=== PATIENT | female | born 1955 | race Caucasian/White ===

== ENCOUNTER 2021-09-24 10:56 | Inpatient (IN) ==
[2021-09-24] MEDS ORDERED: Naloxone 0.4 MG/ML INJ IVP PRN (15:40)
[2021-09-24] MEDS ORDERED: Melatonin 3 MG TABLET PO PRN (15:40)
[2021-09-24] MEDS: Piperacillin/Tazobactam 3.375 GM in 0.9 % Sodium Chloride Mini Bag 100 ML IVPB SCH (18:28)
[2021-09-24] MEDS: Acetaminophen 325 MG TABLET PO PRN (21:28)
[2021-09-24] MEDS: Apixaban 5 MG TABLET PO SCH (21:29)
[2021-09-24] MEDS: Ipratropium 1 PUFF INHALER IH SCH (22:34)
[2021-09-24] MEDS: Vancomycin 1,500 MG/265 ML IV.SOLN IVPB SCH (23:27)
[2021-09-25 01:44] LABS: Basophils % 0.4 %; Eosinophils # 0.1 K/mcL (0.0-0.6); Eosinophils % 0.7 %; Hematocrit 39.4 % (35.3-44.9); Hemoglobin 11.6 g/dL (11.5-15.4); Immature Granulocytes % 1.3 % (0-4); Lymphocytes # 1.7 K/mcL (0.6-4.6); Lymphocytes % 17.7 %; Mean Corpuscular HGB Conc 29.4 g/dL (31.6-35.5); Mean Corpuscular Hemoglobin 26.9 pg (28.0-33.3); Mean Corpuscular Volume 91.2 fL (83.0-100.0); Mean Platelet Volume 10.1 fL (9.4-12.4); Monocytes # 0.5 K/mcL (0.0-1.3); Monocytes % 4.8 %; Neutrophils # 7.2 K/mcL (1.6-8.9); Platelet Count 393 K/mcL (140-400); Red Blood Count 4.32 M/mcL (3.82-4.97); Red Cell Distribution Width 15.7 % (11.5-14.5); Segmented Neutrophils % 75.1 %; White Blood Count 9.6 K/mcL (4.3-11.1)
[2021-09-25 02:04] LABS: BUN/Creatinine Ratio 16 (6-26); Blood Urea Nitrogen 12 mg/dL (8-23); Calcium 8.5 mg/dL (8.6-10.3); Carbon Dioxide 31 mEq/L (23-29); Chloride 101 mEq/L (98-107); Glucose 120 mg/dL (70-105); Magnesium 1.9 mg/dL (1.6-2.6); Osmolality,Calculated 283 (280-300); Potassium 3.9 mEq/L (3.5-5.1); Sodium 136 mEq/L (136-145); eGFR For African Americans > 60 (> 60); eGFR For Non-African Americans > 60 (> 60)
[2021-09-25] MEDS: Ipratropium 1 PUFF INHALER IH SCH ×6 (04:06→19:54)
[2021-09-25] MEDS: Piperacillin/Tazobactam 3.375 GM in 0.9 % Sodium Chloride Mini Bag 100 ML IVPB SCH ×3 (04:24→18:27)
[2021-09-25] MEDS: Apixaban 5 MG TABLET PO SCH ×2 (08:42→20:46)
[2021-09-25] MEDS: Aspirin Enteric Coated 81 MG Tablet PO SCH (08:43)
[2021-09-25] MEDS: Vancomycin 1,500 MG/265 ML IV.SOLN IVPB SCH ×2 (11:47→23:07)
[2021-09-25] MEDS ORDERED: Vancomycin 0 MG in 0.9 % Sodium Chloride 250 ML IVPB SCH (17:00)
[2021-09-25] MEDS ORDERED: Piperacillin/Tazobactam 3.375 GM in 0.9 % Sodium Chloride Mini Bag 100 ML IVPB SCH (19:00)
[2021-09-25] MEDS: Acetaminophen 325 MG TABLET PO PRN (20:45)
[2021-09-26] MEDS: Piperacillin/Tazobactam 3.375 GM in 0.9 % Sodium Chloride Mini Bag 100 ML IVPB SCH ×3 (02:18→17:58)
[2021-09-26] MEDS: Ipratropium 1 PUFF INHALER IH SCH ×4 (03:15→20:20)
[2021-09-26 05:51] LABS: Hematocrit 38.3 % (35.3-44.9); Hemoglobin 11.3 g/dL (11.5-15.4); Mean Corpuscular HGB Conc 29.5 g/dL (31.6-35.5); Mean Corpuscular Hemoglobin 27.4 pg (28.0-33.3); Mean Corpuscular Volume 92.7 fL (83.0-100.0); Mean Platelet Volume 10.4 fL (9.4-12.4); Platelet Count 375 K/mcL (140-400); Red Blood Count 4.13 M/mcL (3.82-4.97); Red Cell Distribution Width 15.9 % (11.5-14.5); White Blood Count 7.3 K/mcL (4.3-11.1)
[2021-09-26 06:08] LABS: BUN/Creatinine Ratio 11 (6-26); Blood Urea Nitrogen 7 mg/dL (8-23); Calcium 8.6 mg/dL (8.6-10.3); Carbon Dioxide 31 mEq/L (23-29); Chloride 102 mEq/L (98-107); Glucose 119 mg/dL (70-105); Osmolality,Calculated 285 (280-300); Potassium 3.8 mEq/L (3.5-5.1); Sodium 138 mEq/L (136-145); eGFR For African Americans > 60 (> 60); eGFR For Non-African Americans > 60 (> 60)
[2021-09-26] MEDS: Apixaban 5 MG TABLET PO SCH ×2 (09:36→19:50)
[2021-09-26] MEDS: Aspirin Enteric Coated 81 MG Tablet PO SCH (09:36)
[2021-09-26] MEDS: Vancomycin 1,500 MG/265 ML IV.SOLN IVPB SCH ×2 (10:30→22:36)
[2021-09-26] MEDS ORDERED: 0.9 % Sodium Chloride 500 ML IVC ONE (17:34)
[2021-09-27 01:39] LABS: Albumin 2.5 g/dL (3.5-5.7)
[2021-09-27] MEDS ORDERED: Albumin 25% 25gram/100mL 25 GM/100 ML IV.SOLN IVPB ONE ×2 (02:40→04:22)
[2021-09-27 02:57] LABS: BUN/Creatinine Ratio 11 (6-26); Blood Urea Nitrogen 7 mg/dL (8-23); Calcium 8.3 mg/dL (8.6-10.3); Carbon Dioxide 30 mEq/L (23-29); Chloride 103 mEq/L (98-107); Glucose 120 mg/dL (70-105); Osmolality,Calculated 287 (280-300); Potassium 3.8 mEq/L (3.5-5.1); Sodium 139 mEq/L (136-145); eGFR For African Americans > 60 (> 60); eGFR For Non-African Americans > 60 (> 60)
[2021-09-27 03:03] LABS: Basophils % 0.2 %; Eosinophils # 0.1 K/mcL (0.0-0.6); Eosinophils % 1.2 %; Hematocrit 36.1 % (35.3-44.9); Hemoglobin 10.7 g/dL (11.5-15.4); Immature Granulocytes % 0.6 % (0-4); Lymphocytes # 1.6 K/mcL (0.6-4.6); Lymphocytes % 19.1 %; Mean Corpuscular HGB Conc 29.6 g/dL (31.6-35.5); Mean Corpuscular Hemoglobin 27.5 pg (28.0-33.3); Mean Corpuscular Volume 92.8 fL (83.0-100.0); Mean Platelet Volume 10.4 fL (9.4-12.4); Monocytes # 0.4 K/mcL (0.0-1.3); Neutrophils # 6.1 K/mcL (1.6-8.9); Platelet Count 370 K/mcL (140-400); Red Blood Count 3.89 M/mcL (3.82-4.97); Red Cell Distribution Width 16.1 % (11.5-14.5); Segmented Neutrophils % 73.9 %; White Blood Count 8.3 K/mcL (4.3-11.1)
[2021-09-27] MEDS: Ipratropium 1 PUFF INHALER IH SCH ×4 (03:38→21:15)
[2021-09-27] MEDS: Piperacillin/Tazobactam 3.375 GM in 0.9 % Sodium Chloride Mini Bag 100 ML IVPB SCH ×4 (04:31→23:04)
[2021-09-27] MEDS: Aspirin Enteric Coated 81 MG Tablet PO SCH (10:28)
[2021-09-27] MEDS: Furosemide 40 MG TABLET PO SCH (10:28)
[2021-09-27] MEDS: Metoprolol XL (24 HR) Succ 50 MG TAB.ER.24H PO SCH (10:28)
[2021-09-27] MEDS: Apixaban 5 MG TABLET PO SCH ×2 (10:28→19:44)
[2021-09-27] MEDS: Vancomycin 1,500 MG/265 ML IV.SOLN IVPB SCH ×2 (10:46→23:04)
[2021-09-28] MEDS: Ipratropium 1 PUFF INHALER IH SCH ×4 (03:40→20:11)
[2021-09-28] MEDS: Piperacillin/Tazobactam 3.375 GM in 0.9 % Sodium Chloride Mini Bag 100 ML IVPB SCH ×3 (05:40→21:27)
[2021-09-28] MEDS: Furosemide 40 MG TABLET PO SCH (10:03)
[2021-09-28] MEDS: Apixaban 5 MG TABLET PO SCH ×2 (10:03→21:28)
[2021-09-28] MEDS: Vancomycin 1,500 MG/265 ML IV.SOLN IVPB SCH (10:04)
[2021-09-28] MEDS: Metoprolol XL (24 HR) Succ 50 MG TAB.ER.24H PO SCH ×2 (10:04→10:05)
[2021-09-28] MEDS: Aspirin Enteric Coated 81 MG Tablet PO SCH (10:04)
[2021-09-29 01:20] LABS: Basophils % 0.1 %; Eosinophils # 0.1 K/mcL (0.0-0.6); Hematocrit 33.3 % (35.3-44.9); Hemoglobin 10.1 g/dL (11.5-15.4); Immature Granulocytes % 0.3 % (0-4); Lymphocytes # 1.5 K/mcL (0.6-4.6); Lymphocytes % 22.2 %; Mean Corpuscular HGB Conc 30.3 g/dL (31.6-35.5); Mean Corpuscular Hemoglobin 28.1 pg (28.0-33.3); Mean Corpuscular Volume 92.8 fL (83.0-100.0); Monocytes # 0.3 K/mcL (0.0-1.3); Monocytes % 4.7 %; Neutrophils # 4.9 K/mcL (1.6-8.9); Platelet Count 311 K/mcL (140-400); Red Blood Count 3.59 M/mcL (3.82-4.97); Segmented Neutrophils % 71.7 %; White Blood Count 6.8 K/mcL (4.3-11.1)
[2021-09-29 01:38] LABS: BUN/Creatinine Ratio 14 (6-26); Blood Urea Nitrogen 10 mg/dL (8-23); Calcium 8.7 mg/dL (8.6-10.3); Carbon Dioxide 36 mEq/L (23-29); Chloride 101 mEq/L (98-107); Glucose 129 mg/dL (70-105); Osmolality,Calculated 291 (280-300); Potassium 3.7 mEq/L (3.5-5.1); Sodium 140 mEq/L (136-145); eGFR For African Americans > 60 (> 60); eGFR For Non-African Americans > 60 (> 60)
[2021-09-29] MEDS: Ipratropium 1 PUFF INHALER IH SCH ×2 (03:47→10:51)
[2021-09-29 03:55] VITALS: TEMP 98
[2021-09-29] MEDS: Piperacillin/Tazobactam 3.375 GM in 0.9 % Sodium Chloride Mini Bag 100 ML IVPB SCH ×2 (05:39→15:11)
[2021-09-29 06:26] VITALS: BP 117/70; PULSE 98
[2021-09-29] MEDS: Furosemide 40 MG TABLET PO SCH (08:39)
[2021-09-29] MEDS: Aspirin Enteric Coated 81 MG Tablet PO SCH (08:40)
[2021-09-29] MEDS: Metoprolol XL (24 HR) Succ 50 MG TAB.ER.24H PO SCH (08:40)
[2021-09-29] MEDS: Apixaban 5 MG TABLET PO SCH (08:40)
[2021-09-29 11:58] VITALS: O2SAT 94
== END 2021-09-29 16:21 | disposition home health service (06) | DRG 720 ==
LOC: 2ANU → SUATTDRO 15:21
PROVIDERS: ADMIT Internal Medicine; ATTEND Internal Medicine